=== PATIENT | male | born 1970 | race Caucasian/White ===

== ENCOUNTER 2022-03-27 16:39 | Emergency (ER) | payer MEDICAID ==
[~2022-03-27] VITALS: Ht 180.3 cm; Wt 79.8 kg
--- NOTE | 2022-03-27 17:43 | NUR ---
COVID Swab collected and sent to LAB.
[2022-03-27] MEDS ORDERED: IBUPROFEN 600 MG TABLET PO ONE (18:15)
[2022-03-27] MEDS ORDERED: IBUP-1955 PO (18:19)
[2022-03-27] MEDS ORDERED: AMOX500C2 PO (18:19)
[2022-03-27 18:30] VITALS: BP 130/63
--- NOTE | 2022-03-27 18:31 | NUR ---
Patient discharged to home. No s/s of discomfort or distress. Alert, oriented, ambulatory. No IV access. Perscriptions given. Explained to log into the patient portal for results of Covid test and rapid strep test. Verbalized understanding. All belongings sent with patient.
== END 2022-03-27 18:35 | disposition home or self-care (01) ==
LOC: ER 16:39
DX: J02.9 Acute pharyngitis, unspecified (principal); Z20.822 Contact with and (suspected) exposure to COVID-19; Z90.5 Acquired absence of kidney; J06.9 Acute upper respiratory infection, unspecified
CPT/HCPCS: 99283; 86403; 36415; U0003; C9803; A4663